=== PATIENT | male | born 1960 | race African-American/Black ===

== ENCOUNTER 2018-05-24 11:25 | Observation (INO) ==
[2018-05-24 12:37] LABS: Basophils # 0.1 10*3/uL (0.0-0.2); Basophils % 0.8 % (0.0-0.8); Eosinophils # 0.2 10*3/uL (0.0-0.87); Eosinophils % 1.7 % (0.00-10.9); Hematocrit 44.3 VOL% (42.0-52.0); Hemoglobin 14.8 GM/DL (14.0-18.0); Immature Granulocytes % 0.4 %; Immature Granulocytes Absolute 0.04 #; Lymphocytes # 2.3 10*3/uL (1.4-4.0); Lymphocytes % 25.7 % (21.2-54.2); Mean Corpuscular HGB Conc 33.4 GM/DL (32-36); Mean Corpuscular Hemoglobin 31 PG (27-34); Mean Corpuscular Volume 91.2 FL (87-102); Mean Platelet Volume 12.5 FL (9.6-12.0); Monocytes # 0.8 10*3/uL (0.11-0.8); Monocytes % 9.3 % (1.7-12.7); Neutrophils # 5.6 10*3/uL (1.4-7.4); Neutrophils % 62.1 % (38.7-73.9); Platelet Count 246 T/CUMM (130-400); Red Blood Count 4.86 MC/CUMM (3.8-5.5); Red Cell Distribution Width 12.4 % (9.3-17.3)
[2018-05-24 12:51] LABS: Albumin 4.1 G/DL (3.4-5.0); Bilirubin,Total 0.5 MG/DL (0.2-1.0); Osmolality,Calculated 272.2 MOS/KG (273-304); Potassium 4.3 MMOL/L (3.5-5.1)
[2018-05-24] MEDS ORDERED: ENOXAPARIN 80 MG/0.8 ML SYRINGE SUBCUT ONE (13:10)
[2018-05-24] MEDS ORDERED: ASPIRIN 325 MG TABLET ONE (13:10)
[2018-05-24] MEDS ORDERED: ENOXAPARIN 80 MG/0.8 ML SYRINGE SUBCUT STA (13:15)
[2018-05-24] MEDS ORDERED: ASPIRIN 325 MG TABLET PO STA (13:15)
[2018-05-24] MEDS ORDERED: ACETAMINOPHEN 325 MG TABLET PO PRN (13:55)
[2018-05-24] MEDS ORDERED: ONDANSETRON 4 MG/2 ML VIAL IV PRN (13:55)
[2018-05-24] MEDS: SODIUM CHLORIDE 0.9% 1,000 ML IV SCH ×2 (14:58→22:22)
[2018-05-24] MEDS ORDERED: NITROGLYCERIN SL 0.4 MG TABLET SL PRN (16:58)
[2018-05-24] MEDS ORDERED: FUROSEMIDE 20 MG/2 ML VIAL IV ONE (17:49)
[2018-05-24] MEDS ORDERED: ALBUTEROL 2.5 MG/3 ML NEB RESP TX PRN (19:00)
[2018-05-24] MEDS ORDERED: ENOXAPARIN 40 MG/0.4 ML SYRINGE SUBCUT SCH (21:00)
[2018-05-24] MEDS: ACETAMINOPHEN 325 MG TABLET PO SCH (22:07)
[2018-05-24] MEDS: GABAPENTIN 100 MG CAPSULE PO SCH ×2 (22:07→22:19)
[2018-05-24] MEDS: DOCUSATE SODIUM 100 MG CAPSULE PO SCH ×2 (22:07→22:19)
[2018-05-24] MEDS: SIMVASTATIN 10 MG TABLET PO SCH (22:09)
[2018-05-24] MEDS: TRAVOPROST 0.004% OPH SOLN 2.5 ML BOTTLE BOTH EYES SCH (22:22)
[2018-05-25 06:05] LABS: Calcium 8.7 MG/DL (8.5-10.1); Osmolality,Calculated 273.7 MOS/KG (273-304); Potassium 3.5 MMOL/L (3.5-5.1)
[2018-05-25 06:12] LABS: Risk Ratio 3.26; VLDL CHOLESTEROL 28.4 MG/DL
[2018-05-25] MEDS ORDERED: amLODIPine 2.5 MG TABLET PO SCH (09:00)
[2018-05-25] MEDS ORDERED: Omeprazole [Prilosec] 20 MG PO SCH (09:00)
[2018-05-25] MEDS: ASPIRIN CHEW 81 MG TABLET PO SCH (10:11)
[2018-05-25] MEDS: PANTOPRAZOLE 40 MG TABLET PO SCH (10:12)
[2018-05-25] MEDS: LOSARTAN/HCTZ 50-12.5 MG TABLET PO SCH (10:12)
[2018-05-25] MEDS: SODIUM CHLORIDE 0.9% 1,000 ML IV SCH (10:16)
[2018-05-25] MEDS ORDERED: diphenhydrAMINE CAP 25 MG CAPSULE PO ONE (11:03)
[2018-05-25] MEDS ORDERED: DIAZEPAM 5 MG TABLET PO ONE (11:03)
[2018-05-25] MEDS ORDERED: MAGNESIUM SULF RIDER 2 GM in PREMIX 1 EACH IV PRN (11:03)
[2018-05-25] MEDS ORDERED: POTASSIUM CHLORIDE RIDER 10 MEQ in PREMIX 1 EACH IV PRN (11:03)
[2018-05-25] MEDS: DOCUSATE SODIUM 100 MG CAPSULE PO SCH ×2 (12:17→20:43)
[2018-05-25] MEDS: GABAPENTIN 100 MG CAPSULE PO SCH ×3 (12:17→20:46)
[2018-05-25] MEDS: MULTIVITAMIN (CENTRUM) TABLET PO SCH (12:17)
[2018-05-25] MEDS: FLUTICASONE 50 MCG NASAL SPRAY 16 GM BOTTLE BOTH NARES SCH (12:17)
[2018-05-25] MEDS: ACETAMINOPHEN 325 MG TABLET PO SCH ×2 (12:17→20:43)
[2018-05-25] MEDS ORDERED: LIDOCAINE 1% 20 ML VIAL ONE (18:14)
[2018-05-25] MEDS ORDERED: fentaNYL 100 MCG/2 ML VIAL ONE (18:14)
[2018-05-25] MEDS ORDERED: MIDAZOLAM 2 MG/2 ML VIAL ONE (18:14)
[2018-05-25] MEDS ORDERED: HEPARIN 5,000 UNIT/1 ML VIAL ONE (18:28)
[2018-05-25] MEDS: METOPROLOL TARTRATE 25 MG TABLET PO SCH (20:42)
[2018-05-25] MEDS: SIMVASTATIN 10 MG TABLET PO SCH (20:43)
[2018-05-25] MEDS: TRAVOPROST 0.004% OPH SOLN 2.5 ML BOTTLE BOTH EYES SCH (20:46)
[2018-05-26 05:18] LABS: Basophils % 0.8 % (0.0-0.8); Eosinophils # 0.2 10*3/uL (0.0-0.87); Eosinophils % 4.4 % (0.00-10.9); Hematocrit 43.6 VOL% (42.0-52.0); Hemoglobin 14.1 GM/DL (14.0-18.0); Immature Granulocytes % 0.2 %; Immature Granulocytes Absolute 0.01 #; Lymphocytes # 2.2 10*3/uL (1.4-4.0); Mean Corpuscular HGB Conc 32.3 GM/DL (32-36); Mean Corpuscular Hemoglobin 30 PG (27-34); Mean Corpuscular Volume 93.8 FL (87-102); Monocytes # 0.5 10*3/uL (0.11-0.8); Monocytes % 10.2 % (1.7-12.7); Neutrophils # 2.1 10*3/uL (1.4-7.4); Neutrophils % 41.4 % (38.7-73.9); Platelet Count 244 T/CUMM (130-400); Red Blood Count 4.65 MC/CUMM (3.8-5.5); Red Cell Distribution Width 12.3 % (9.3-17.3)
[2018-05-26 05:26] LABS: Calcium 8.5 MG/DL (8.5-10.1); Osmolality,Calculated 278.3 MOS/KG (273-304); Potassium 3.6 MMOL/L (3.5-5.1)
[2018-05-26 05:28] LABS: Calcium 8.5 MG/DL (8.5-10.1); Osmolality,Calculated 272.7 MOS/KG (273-304); Potassium 3.7 MMOL/L (3.5-5.1)
[2018-05-26] MEDS: DOCUSATE SODIUM 100 MG CAPSULE PO SCH (09:40)
[2018-05-26] MEDS: PANTOPRAZOLE 40 MG TABLET PO SCH (09:40)
[2018-05-26] MEDS: METOPROLOL TARTRATE 25 MG TABLET PO SCH (09:41)
[2018-05-26] MEDS: MULTIVITAMIN (CENTRUM) TABLET PO SCH (09:43)
[2018-05-26] MEDS: LOSARTAN/HCTZ 50-12.5 MG TABLET PO SCH (09:43)
[2018-05-26] MEDS: GABAPENTIN 100 MG CAPSULE PO SCH ×2 (09:44→15:01)
[2018-05-26] MEDS: ACETAMINOPHEN 325 MG TABLET PO SCH (09:45)
[2018-05-26] MEDS: ASPIRIN CHEW 81 MG TABLET PO SCH (09:45)
[2018-05-26] MEDS: FLUTICASONE 50 MCG NASAL SPRAY 16 GM BOTTLE BOTH NARES SCH ×2 (09:48→15:06)
[2018-05-26 12:31] VITALS: BP 115/78
== END 2018-05-26 16:40 | disposition home or self-care (01) ==
LOC: N.ED 11:25 → N.EDINP 11:25 → N.TELEN 13:46
PROVIDERS: ADMIT Family Medicine; ATTEND Family Medicine
PROC: CLCCHCL (ICD-10-PCS; 2018-05-25 16:45)